=== PATIENT | female | born 1990 | race Caucasian/White ===

== ENCOUNTER 2019-05-22 14:43 | Emergency (ER) | payer OTHER ==
[2019-05-22 16:00] LABS: Urine Appearance Clear; Urine Bacteria Absent (Absent); Urine Bilirubin Negative (Negative); Urine Blood 2+ (Negative); Urine Color Straw; Urine Glucose Negative (Negative); Urine Ketones Negative (Negative); Urine Nitrite Negative (Negative); Urine Protein Negative (Negative); Urine Red Blood Cell 2+(6-10/hpf) (Absent); Urine Specific Gravity 1.003 (1.010-1.030); Urine Squamous Epithelial Cell Present (Absent); Urine Urobilinogen Negative (Negative); Urine White Blood Cell Absent (Absent)
--- NOTE | 2019-05-22 17:09 | ED ---
GI/ HPI - HPI Summary HPI Summary: This patient is a 29 year old F presenting to [facility] with a chief complaint of hematuria this morning. For the past month, the pt has had pain with palpation of the right mid back. One month ago had pain in lower right back and Dx pt with UTI in [place]. She was given antibiotics and she did not properly take the course of antibiotics as she was traveling. Patient reports diarrhea, resolved abdominal cramps. Patient denies vaginal bleeding, fever, chills, N/V. Pt has PMHx of anxiety, and asthma. Per triage, the patient rates the pain 3/10 in severity. Last menstrual period was 2 weeks ago. Medications reviewed. Allergies noted - History of Current Complaint Chief Complaint: EDUrogenitalProblems Time Seen by Provider: 05/22/19 16:34 Stated Complaint: BACK PAIN AND BLOOD IN URINE PER PT Hx Obtained From: Patient Hx Last Menstrual Period: 2 weeks ago Onset/Duration: Started Hours Ago, Still Present Timing: Intermittent Severity: Mild Current Severity: Mild Number of Pads per Day: 0 Number of Pads per Hour: 0 Pain Intensity: 3 Location of Pain: Other - Back Associated Signs and Symptoms: Positive: Diarrhea, Hematuria. Negative: Nausea , Vomiting, Fever Additional Signs & Symptoms: Negative: Vaginal Bleeding Aggravating Factor(s): Palpation Alleviating Factor(s): Nothing - Allergy/Home Medications Allergies/Adverse Reactions: Allergies Allergy/AdvReac Type Severity Reaction Status Date / Time azithromycin Allergy Unknown Verified 07/26/18 08:29 Reaction Details Cephalosporins Allergy Unknown Verified 07/26/18 08:29 Reaction Details Penicillins Allergy Unknown Verified 07/26/18 08:29 Reaction Details PMH/Surg Hx/FS Hx/Imm Hx Respiratory History: Reports: Hx Asthma Psychiatric History: Reports: Hx Anxiety - Surgical History Surgery Procedure, Year, and Place: lung obstruction surgery as child Infectious Disease History: No Infectious Disease History: Denies: Traveled Outside the [place] in Last 30 Days - Family History Known Family History: Negative: Other - Kidney Stones - Social History Alcohol Use: Occasionally Hx Substance Use: Yes Substance Use Type: Reports: Marijuana Substance Use Comment - Amount & Last Used: last used "last night" Smoking Status (MU): Never Smoked Tobacco Review of Systems Negative: Fever, Chills Positive: Abdominal Pain, Diarrhea. Negative: Vomiting, Nausea Positive: hematuria Positive: Other - back pain All Other Systems Reviewed And Are Negative: Yes Physical Exam - Summary Physical Exam Summary: Constitutional: Well-developed, Well-nourished, Alert. (-) Distressed Skin: Warm, Dry HENT: Normocephalic; Atraumatic Eyes: Conjunctiva normal Neck: Musculoskeletal ROM normal neck. (-) JVD, (-) Stridor, (-) Tracheal deviation Cardio: Rhythm regular, rate normal, Heart sounds normal; Intact distal pulses; The pedal pulses are 2+ and symmetric. Radial pulses are 2+ and symmetric. (-) Murmur Pulmonary/Chest wall: Effort normal. (-) Respiratory distress, (-) Wheezes, (-) Rales Abd: Soft, Mild RLQ pain, (-) Distension, (-) Guarding, (-) Rebound Musculoskeletal: (-) Edema Lymph: (-) Cervical adenopathy Neuro: Alert, Oriented x3 Psych: Mood and affect Normal Triage Information Reviewed: Yes Vital Signs On Initial Exam: Initial Vitals Temp Pulse Resp BP Pulse Ox 97.1 F 81 18 137/86 97 05/22/19 14:44 05/22/19 14:44 05/22/19 14:44 05/22/19 14:44 05/22/19 14:44 Vital Signs Reviewed: Yes Diagnostics - Vital Signs Vital Signs Temp Pulse Resp BP Pulse Ox 05/22/19 14:44 97.1 F 81 18 137/86 97 - Laboratory Lab Results: Lab Results 05/22/19 Range/Units 14:52 Urine Color Straw Urine Appearance Clear Urine pH 6.0 (5-9) Ur Specific [place] 1.003 L (1.010-1.030) Urine Protein Negative (Negative) Urine Ketones Negative (Negative) Urine Blood 2+ A (Negative) Urine Nitrate Negative (Negative) Urine Bilirubin Negative (Negative) Urine Urobilinogen Negative (Negative) Ur Leukocyte Esterase Negative (Negative) Urine WBC (Auto) Absent (Absent) Urine RBC (Auto) 2+(6-10/hpf) A (Absent) Ur Squamous Epith Cells Present A (Absent) Urine Bacteria Absent (Absent) Urine Glucose Negative (Negative) Lab Statement: Any lab studies that have been ordered have been reviewed, and results considered in the medical decision making process. GIGU Course/Dx - Course Course Of Treatment: Patient is here with hematuria. Patient a similar episode one month ago and was evaluated in [place] with a negative CT scan for nephrolithiasis or appendicitis. Patient's had mild right flank pain for the past month with no change in that today. Patient had a benign abdominal exam. Patient was offered CT scan to valid for nephrolithiasis again but declined. Given patient's recurrent hematuria, patient is given urology follow-up for further evaluation. - Diagnoses Provider Diagnoses: Hematuria, Right flank pain Discharge ED - Sign-Out/Discharge Documenting (check all that apply): Patient Departure - Discharge Patient Received Moderate/Deep Sedation with Procedure: No - Discharge Plan Condition: Stable Disposition: HOME Patient Education Materials: Hematuria (ED) Referrals: Chantel Marion MD [Primary Care Provider] - 1 Day Jose F Campa MD [Medical Doctor] - As Soon As Possible Additional Instructions: Please call Dr. Campa at and schedule an appointment to be evaluated for recurrent hematuria. Follow up with your primary care provider tomorrow. Come back to the ED with any severe pain, or worsening symptoms. - Billing Disposition and Condition Condition: STABLE Disposition: Home - Attestation Statements Document Initiated by Scribe: Yes Documenting Scribe: Martha Taylor Provider For Whom Regineibe is Documenting (Include Credential): Federico Crain MD Scribe Attestation: Martha Post scribed for Federico Crain MD on 05/22/19 at 1915. Scribe Documentation Reviewed: Yes Provider Attestation: The documentation as recorded by the Martha alexander accurately reflects the service I personally performed and the decisions made by Federico salomon MD Status of Scribe Document: Viewed
[2019-05-22 17:43] VITALS: BP 0/0
== END 2019-05-22 17:42 | disposition home or self-care (01) ==
LOC: ED 14:43
DX: R31.9 Hematuria, unspecified (principal); R10.31 Right lower quadrant pain; M54.6 Pain in thoracic spine; R19.7 Diarrhea, unspecified; Z88.1 Allergy status to other antibiotic agents; Z88.0 Allergy status to penicillin
CPT/HCPCS: 81003; 81015; 99282